=== PATIENT | male | born 1955 | race Caucasian/White ===

== ENCOUNTER 2020-06-22 09:51 | Emergency (ER) | payer BC | END 2020-06-22 12:38 | disposition home or self-care (01) | LOC: JVIRT 09:51 | DX: Z03.818 Encounter for observation for suspected exposure to other biological agents ruled out (principal) | CPT/HCPCS: C9803; Q3014-GT; U0003 ==

== ENCOUNTER 2021-01-12 12:05 | Emergency (ER) | payer BC, OTHER | END 2021-01-12 14:16 | disposition home or self-care (01) | LOC: JVIRT 12:05 | DX: Z20.822 Contact with and (suspected) exposure to COVID-19 (principal) | CPT/HCPCS: C9803; Q3014-GT; U0003; U0005 ==